=== PATIENT | male | born 1985 | race Caucasian/White ===

== ENCOUNTER 2021-11-24 08:37 | Emergency (ER) | payer SELFPAY ==
[~2021-11-24] VITALS: Ht 185.5 cm; Wt 117.9 kg
--- NOTE | 2021-11-24 08:57 | ED Back Pain ---
General Stated Complaint: BACK PAIN Source of Information: Patient Exam Limitations: No Limitations History of Present Illness Date Seen by Provider: Nov 24, 2021 Time Seen by Provider: 08:45 Initial Comments Patient to the ER by private conveyance with chief complaint that since Thursday he woke up with significant pain in his left lower back. Is not radiating. Is not having hematuria or dysuria. No history of kidney stones. No traumatic inciting event. 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 He has had chronic back issues. He does not have any history of imaging. No loss of control of bowel or bladder. No saddle anesthesia, falls from weakness or other trauma. No surgeries on his back. He has not taken anything for the pain yet. Allergies and Home Medications Allergies Coded Allergies: No Known Drug Allergies (Unverified , 11/24/21) Patient Home Medication List Home Medication List Reviewed: Yes Review of Systems Constitutional: No chills, No diaphoresis EENTM: No ear discharge, No ear pain Respiratory: No cough, No short of breath Cardiovascular: No edema, No Hx of Intervention, No palpitations Gastrointestinal: No abdominal pain, No nausea, No vomiting Genitourinary: No discharge, No dysuria Musculoskeletal: back pain; No joint pain All Other Systems Reviewed Negative Unless Noted: Yes Past Qroqixx-Ycqovz-Ohvnkk Hx Patient Social History Tobacco Use?: No Use of E-Cig and/or Vaping dev: No Substance use?: No Physical Exam Vital Signs Vital Signs - First Documented 11/24/21 08:41 Temp 35.1 Pulse 93 Resp 20 B/P (MAP) 178/128 (145) Pulse Ox 99 O2 Delivery Room Air Capillary Refill : Height, Weight, BMI Height: '" Weight: lbs. oz. kg; BMI Method: General Appearance: WD/WN, Mild Distress HEENT: PERRL/EOMI, Pharynx Normal, Moist Mucous Membranes Neck: Full Range of Motion, Normal Inspection Cardiovascular: Regular Rate, Rhythm, Normal Peripheral Pulses Respiratory: Lungs Clear, Normal Breath Sounds, No Accessory Muscle Use, No Respiratory Distress Back: Normal Inspection, No CVA Tenderness, No Vertebral Tenderness, Muscle Spasm (Left paravertebral spinous tenderness over the upper lumbar) Extremity: Normal Capillary Refill, No Pedal Edema Neurologic/Psychiatric: Alert, Oriented x3, No Motor/Sensory Deficits Skin: Normal Color, Warm/Dry Progress/Results/Core Measures Results/Orders Lab Results Laboratory Tests Test 11/24/21 09:00 Range/Units Urine Color YELLOW Urine Clarity CLEAR Urine pH 7.0 5-9 Urine Specific [place] 1.020 1.016-1.022 Urine Protein NEGATIVE NEGATIVE Urine Glucose (UA) NEGATIVE NEGATIVE Urine Ketones NEGATIVE NEGATIVE Urine Nitrite NEGATIVE NEGATIVE Urine Bilirubin NEGATIVE NEGATIVE Urine Urobilinogen 0.2 < = 1.0 MG/DL Urine Leukocyte Esterase NEGATIVE NEGATIVE Urine RBC (Auto) TRACE-I H NEGATIVE Urine RBC RARE /HPF Urine WBC NONE /HPF Urine Squamous Epithelial Cells NONE /HPF Urine Crystals NONE /LPF Urine Bacteria NEGATIVE /HPF Urine Casts NONE /LPF Urine Mucus NEGATIVE /LPF Urine Culture Indicated NO My Orders Orders - NATASHA CAMACHO Ua Culture If Indicated (11/24/21 08:49) Ketorolac Injection (Toradol Injection) (11/24/21 09:00) Medications Given in ED Current Medications Medications Dose Ordered Sig/Bc Route Start Time Stop Time Status Last Admin Dose Admin Ketorolac Tromethamine 60 mg ONCE ONCE IM 11/24/21 09:00 11/24/21 09:01 DC 11/24/21 09:15 60 MG Vital Signs/I&O 11/24/21 08:41 Temp 35.1 Pulse 93 Resp 20 B/P (MAP) 178/128 (145) Pulse Ox 99 O2 Delivery Room Air Progress Progress Note : Time: 08:55 Progress Note Toradol to start. Urinalysis to rule out infection or kidney stone. We will put him on naproxen, topical creams and referral to physical therapy for what is likely organic back pain with muscle spasms. Cyclobenzaprine. Departure Impression Primary Impression: Lumbago without sciatica Qualified Codes: M54.50 - Low back pain, unspecified Disposition: 01 HOME, SELF-CARE Condition: Stable Departure-Patient Inst. Decision time for Depature: 09:32 Referrals: NO,LOCAL PHYSICIAN (PCP/Family) Primary Care Physician Patient Instructions: Low Back Pain (DC) Add. Discharge Instructions: Make sure you are drinking plenty of fluids. Warm moist heat and topical creams such as icy hot or creams with capsaicin oil are often helpful. Tylenol 650 mg every 8 hours as necessary for pain. Start a regimen of naproxen daily to reduce the inflammation in your back. Naproxen 500 mg twice a day. If you have muscle spasms again in your back then you may take cyclobenzaprine/Flexeril 1 tablet every 8 hours as necessary. Flexeril will cause drowsiness. Stay active moving around the house and doing your stretching exercises. Do not lift, push or pull greater than 20 pounds until for 1 week. Obtain a back brace and wear it on the days that you need it. Follow the stretching exercises and consider engaging in a course of physical therapy. You may follow-up with [facility] physical therapy by calling for a no upfront cost evaluation at [phone]. You should also seek help through a primary care office and managing your symptoms. Promptly return to the ER if you experience numbness in your saddle region, inability to urinate, or falls caused by weakness or numbness in your legs. Scripts Naproxen (Naprosyn) 500 Mg Tablet 500 MG PO BID, #30 TAB 0 Refills Prov: NATASHA CAMACHO 11/24/21 Cyclobenzaprine HCl (Cyclobenzaprine HCl) 10 Mg Tablet 10 MG PO Q8H PRN for SPASMS, #20 TAB 0 Refills Prov: NATASHA CAMACHO 11/24/21 Work/School Note: Work Release Form Date Seen in the Emergency Department: Nov 24, 2021 Return to Work: Nov 25, 2021 Restrictions: Need Release from Doctor Other Restrictions Listed Below: Do not lift, push, pull above 20 pounds until 12/02/2021. NATASHA CAMACHO Nov 24, 2021 08:57
[2021-11-24] MEDS ORDERED: KETOROLAC 60 MG/2 ML VIAL IM ONE (09:00)
[2021-11-24 09:05] LABS: BILIRUBIN,URINE NEGATIVE (NEGATIVE); CLARITY,URINE CLEAR; COLOR,URINE YELLOW; GLUCOSE, URINE (UA) NEGATIVE (NEGATIVE); KETONES,URINE NEGATIVE (NEGATIVE); LEUKOCYTE ESTERASE ,URINE NEGATIVE (NEGATIVE); NITRITE,URINE NEGATIVE (NEGATIVE); PROTEIN,URINE NEGATIVE (NEGATIVE)
[2021-11-24 09:12] LABS: BACTERIA,URINE NEGATIVE /HPF; RBC,URINE RARE /HPF
[2021-11-24] MEDS ORDERED: CYCL10TA25 PO (09:33)
[2021-11-24] MEDS ORDERED: NAPR-1071 PO (09:33)
[2021-11-24 10:03] VITALS: BP 146/79
== END 2021-11-24 10:03 | disposition home or self-care (01) ==
LOC: EDUNIT# 08:37 → ER 08:40
DX: M54.50 Low back pain, unspecified (principal)
CPT/HCPCS: 81000; 99284

== ENCOUNTER 2022-01-16 20:10 | Emergency (ER) | payer SELFPAY ==
[~2022-01-16] VITALS: Ht 183 cm; Wt 122.4 kg
[~2022-01-16 20:10] MED LIST: CYCL10TA25 PO; NAPR-1071 PO
[2022-01-16 20:41] VITALS: BP 157/115
--- NOTE | 2022-01-16 20:49 | ED EENT ---
History of Present Illness General Chief Complaint: Oral/Throat Problems Stated Complaint: SORE THROAT/SWELLING Source: patient Exam Limitations: no limitations History of Present Illness Date Seen by Provider: January 16, 2022 Time Seen by Provider: 20:44 Initial Comments Patient is a 36-year-old male who presents ED with sore throat difficulty swallowing. Symptoms over the past 3 weeks. This progressively gotten worse. Noticed redness to the back of his throat with pus pocket. Reports mild cough but is an everyday smoker. Denies any worsening cough, chest pain, Edilberto pain vomiting or diarrhea fever. He states his kids at home were diagnosed with strep throat and treated. Patient had leftover amoxicillin and has taken a few days worth. He states his symptoms are worsening. Tolerating secretions but does hurt to swallow. Denies waking up in the middle of the night with worsening cough or severe throat pain. Denies history of GERD. Denies of any neck swelling, pain to the floor of his mouth, urinary symptoms. Patient denies history of HIV. Denies nausea, weakness, body aches, increased tiredness. Allergies and Home Medications Allergies Coded Allergies: No Known Drug Allergies (Unverified , 11/24/21) Patient Home Medication List Home Medication List Reviewed: Yes Azithromycin (Azithromycin) 500 Mg Tablet, 500 MG PO DAILY Prescribed by: HUE BACH on 01/16/222050 Cyclobenzaprine HCl (Cyclobenzaprine HCl) 10 Mg Tablet, 10 MG PO Q8H PRN for SPASMS Prescribed by: NATASHA CAMACHO on 11/24/21932 Naproxen (Naprosyn) 500 Mg Tablet, 500 MG PO BID Prescribed by: NATASHA CAMACHO on 11/24/21932 Review of Systems Review of Systems Constitutional: No chills, No diaphoresis, No malaise, No weakness Eyes: Denies Blurred Vision, Denies Decreased Acuity Ears: Denies Dizziness, Denies Pain Nose: denies clots, denies congestion Mouth: denies loose teeth Throat: pain, swelling, painful swallowing Physical Exam Vital Signs Vital Signs - First Documented 01/16/22 20:41 Temp 36.5 Pulse 94 Resp 20 B/P (MAP) 157/115 (129) Height, Weight, BMI Height: '" Weight: lbs. oz. kg; 34.00 BMI Method: General Appearance: WD/WN, no apparent distress Eyes: bilateral eye normal inspection, bilateral eye PERRL, bilateral eye EOMI Ears: bilateral ear auricle normal, bilateral ear canal normal, bilateral ear TM normal Nose: normal inspection Mouth/Throat: pharynx swelling, pharynx tenderness Neck: non-tender, full range of motion, supple, normal inspection Cardiovascular: regular rate, rhythm, no edema, no gallop, no JVD Respiratory: chest non-tender, lungs clear, normal breath sounds, no respiratory distress, no accessory muscle use Gastrointestinal: normal bowel sounds, non tender, soft, no organomegaly 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 This has been ongoing for the past 3 weeks. Took leftover amoxicillin at home without much improvement. He states kids at home were diagnosed with strep throat. Reports chronic cough every day smoker. Denies worsening cough. No ear pain vomiting, diarrhea, abdominal pain. Patient with erythematous throat with exudate and swollen tonsils. Concerning for strep. Patient will be discharged azithromycin. Discussed smoking cessation. Follow-up your PCP in 2 to 3 days for evaluation. Denies history of GERD or waking up with worsening throat pain. Denies worsening cough at night. Discussed following up with PCP in 2 to 3 days for reevaluation. Gargling salt water, Tylenol ibuprofen for pain. Patient has no body aches, fatigue, joint pain, abdominal pain suggesting other potential etiologies. He denies of any urinary symptoms or concern for HIV. Impression Primary Impression: Pharyngitis Disposition: HOME, SELF-CARE Condition: Stable Departure-Patient Inst. Decision time for Depature: 20:51 Referrals: NO,LOCAL PHYSICIAN (PCP/Family) Primary Care Physician Patient Instructions: Sore Throat in Adults Scripts Azithromycin (Azithromycin) 500 Mg Tablet 500 MG PO DAILY for 5 Days, #5 TAB Prov: IBRAHIMA BUCKNER 01/16/22 Work/School Note: Work Release Form Date Seen in the Emergency Department: January 16, 2022 Return to Work: January 19, 2022 IBRAHIMA BUCKNER January 16, 2022 20:49
[2022-01-16] MEDS ORDERED: AZIT500T9 PO (20:51)
== END 2022-01-16 21:27 | disposition home or self-care (01) ==
LOC: EDUNIT# 20:10 → ER 20:11
DX: J02.9 Acute pharyngitis, unspecified (principal); F17.200 Nicotine dependence, unspecified, uncomplicated
CPT/HCPCS: 87430; 99283

== ENCOUNTER 2023-05-09 22:47 | Emergency (ER) | payer SELFPAY ==
[~2023-05-09] VITALS: Ht 182.9 cm; Wt 113.9 kg
[~2023-05-09 22:47] MED LIST changes: +AZIT500T9 PO
--- NOTE | 2023-05-09 23:09 | ED Back Pain ---
General Chief Complaint: Back Problems Stated Complaint: LOWER BACK PAIN Nursing Triage Note: Patient c/o bilat. side back pain x 4 days with no known injury. Patient states he drinks a lot of pop and states he does not drink any water. Patient denies any numbness or tingling to bilat. LE. Patient denies taking any medications at home for his pain. Patient states movement makes his pain worse. 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 PAIN BEGAN BEFORE HE STARTED NEW JOB NO CHRONIC MEDICAL PROBLEMS OR DAILY MEDICATIONS NO PRIOR SURGERIES PT SMOKES 1 PPD, HX OF ETOH ABUSE--CLAIMS NONE SINCE 2007, DRUGS--THC Other Comments PCP: NONE Allergies and Home Medications Allergies Coded Allergies: No Known Drug Allergies (Unverified , 11/24/21) Patient Home Medication List Home Medication List Reviewed: Yes Azithromycin (Azithromycin) 500 Mg Tablet, 500 MG PO DAILY Prescribed by: HUE BACH on 01/16/222050 Cyclobenzaprine HCl (Cyclobenzaprine HCl) 10 Mg Tablet, 10 MG PO Q8H PRN for SPASMS Prescribed by: NATASHA CAMACHO on 11/24/21932 Cyclobenzaprine HCl (Cyclobenzaprine HCl) 10 Mg Tablet, 10 MG PO Q8H PRN for SPASMS Prescribed by: GRISEL MAYEN on 05/10/23114 Naproxen (Naprosyn) 500 Mg Tablet, 500 MG PO BID Prescribed by: NATASHA CAMACHO on 11/24/21932 Naproxen (Naproxen) 500 Mg Tablet.dr, 500 MG PO BID Prescribed by: GRISEL MAYEN on 05/10/23 011 Review of Systems Constitutional: no symptoms reported Respiratory: no symptoms reported Cardiovascular: no symptoms reported Gastrointestinal: see HPI Genitourinary: no symptoms reported Musculoskeletal: see HPI Skin: no symptoms reported Psychiatric/Neurological: No Symptoms Reported Past Qmmlrdh-Tlmuxy-Ptksol Hx Patient Social History Tobacco Use?: Yes Tobacco type used: Cigarettes Smoking Status: Current Everyday Smoker Substance use?: Yes Substance type: Marijuana Substance frequency: Daily Alcohol Use?: Yes Past Medical History Surgeries: No Respiratory: No Cardiac: No Neurological: No Genitourinary: No Gastrointestinal: No Musculoskeletal: No Endocrine: No HEENT: No Cancer: No Psychosocial: No Integumentary: No Blood Disorders: No Family Medical History SOCIAL HISTORY: -SMOKES 1 PPD -ETOH--HX OF ABUSE--USED TO DRINK THREE FIFTH'S OF TRISTAN [employer] A DAY, QUIT 2007 -DRUGS--THC DAILY Physical Exam Vital Signs Vital Signs - First Documented 05/09/23 22:52 Temp 35.9 Pulse 77 Resp 14 B/P (MAP) 164/114 (131) O2 Delivery Room Air Capillary Refill : Height, Weight, BMI Height: '" Weight: lbs. oz. kg; 34.00 BMI Method: General Appearance: No Apparent Distress, WD/WN, Other (WALKS UPRIGHT WITHOUT DIFFICULTY. PT IS FILTHY, MALODOROUS, REEKS OF MARIJUANA AND TOBACCO, EXTREMELY DRAMATIC WITH MARKED EXAGGERATED PAIN RESPONSE. ) Neck: Full Range of Motion, Normal Inspection, Non Tender, Supple Cardiovascular: Regular Rate, Rhythm Respiratory: Normal Breath Sounds Gastrointestinal: Non Tender, Soft Back: No CVA Tenderness, No Vertebral Tenderness, Other (BILATERAL FLANK TENDERNESS. ) Extremity: Normal Capillary Refill, No Pedal Edema, Other (DTR'S INTACT. 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 Skin: Normal Color, Warm/Dry, Tattoos/Piercings (EXTENSIVE TATTOOS), Other (SORES/SCARS/SCABS TO ARMS AND UPPER BACK) Progress/Results/Core Measures Results/Orders Lab Results Laboratory Tests Test 05/09/23 22:55 Range/Units Urine Color YELLOW Urine Clarity CLEAR Urine pH 5.5 5-9 Urine Specific [place] 1.025 H 1.016-1.022 Urine Protein NEGATIVE NEGATIVE Urine Glucose (UA) NEGATIVE NEGATIVE Urine Ketones NEGATIVE NEGATIVE Urine Nitrite NEGATIVE NEGATIVE Urine Bilirubin NEGATIVE NEGATIVE Urine Urobilinogen 0.2 < = 1.0 MG/DL Urine Leukocyte Esterase NEGATIVE NEGATIVE Urine RBC (Auto) TRACE H NEGATIVE Urine RBC 0-2 /HPF Urine WBC 0-2 /HPF Urine Crystals NONE /LPF Urine Bacteria TRACE /HPF Urine Casts NONE /LPF Urine Mucus LARGE H /LPF Urine Other MOD SPERM H /HPF Urine Culture Indicated NO Urine Opiates Screen NEGATIVE NEGATIVE Urine Oxycodone Screen NEGATIVE NEGATIVE Urine Methadone Screen NEGATIVE NEGATIVE Urine Propoxyphene Screen NEGATIVE NEGATIVE Urine Barbiturates Screen NEGATIVE NEGATIVE Ur Tricyclic Antidepressants Screen NEGATIVE NEGATIVE Urine Phencyclidine Screen NEGATIVE NEGATIVE Urine Amphetamines Screen NEGATIVE NEGATIVE Urine Methamphetamines Screen NEGATIVE NEGATIVE Urine Benzodiazepines Screen NEGATIVE NEGATIVE Urine Cocaine Screen NEGATIVE NEGATIVE Urine Cannabinoids Screen POSITIVE H NEGATIVE My Orders Orders - GRISEL MAYEN DO Drug Screen Stat (Urine) (05/09/23 22:55) Ua Culture If Indicated (05/09/23 22:55) Ct Abd/Pelvis Wo(Kidney Stone) (05/09/23 23:21) Ketorolac Injection (Ketorolac Injection (05/09/23 23:30) Medications Given in ED Current Medications Medications Dose Ordered Sig/Bc Route Start Time Stop Time Status Last Admin Dose Admin Ketorolac Tromethamine 60 mg ONCE ONCE IM 05/09/23 23:30 05/09/23 23:31 DC 05/09/23 23:42 60 MG Vital Signs/I&O 05/09/23 22:52 Temp 35.9 Pulse 77 Resp 14 B/P (MAP) 164/114 (131) O2 Delivery Room Air Blood Pressure Mean: 131 Progress Progress Note : Progress Note UNEVENTFUL ER STAY SLEPT FOR REMAINDER OF ER STAY--LAYING PRONE/ON STOMACH PT WALKS UPRIGHT AND MOVES QUICKLY WITHOUT DIFFICULTY THROUGHOUT ER STAY VITALS STABLE UA WITH TRACE OF RBC'S UDS + FOR THC CT ABDOMEN/PELVIS DOES NOT SHOW ANY ACUTE PROCESS GIVEN TORADOL IM DISCUSSED TEST RESULTS, ANTICIPATED COURSE, MEDICATIONS, NEED FOR FOLLOW UP AND RETURN PRECAUTIONS REVIEWED PRIOR RECORDS--ER VISITS Diagnostic Imaging Comments CT ABDOMEN/PELVIS--PER [facility] VIA FAX AT 0113 -MILD WALL THICKENING OF BLADDER -DIVERTICULOSIS WITHOUT ACUTE DIVERTICULITIS -NO KIDNEY OR URETER ABNORMALITIES, NO STONES Reviewed: Reviewed by Me Departure Impression Primary Impression: Back pain Disposition: HOME, SELF-CARE Condition: Stable Departure-Patient Inst. Decision time for Depature: 01:14 Referrals: NO,LOCAL PHYSICIAN (PCP/Family) Primary Care Physician Patient Instructions: Low Back Pain (DC) Add. Discharge Instructions: MOIST HEAT TO SORE AREAS AT 20 MINUTE INTERVALS FOLLOW UP WITH [facility] NEXT WEEK IF NO BETTER All discharge instructions reviewed with patient and/or family. Voiced understanding. Scripts Cyclobenzaprine HCl (Cyclobenzaprine HCl) 10 Mg Tablet 10 MG PO Q8H PRN for SPASMS, #15 TAB 0 Refills Prov: GRISEL MAYEN DO 05/10/23 Naproxen (Naproxen) 500 Mg Tablet.dr 500 MG PO BID, #20 TAB Prov: GRISEL MAYEN DO 05/10/23 GRISEL MAYEN DO May 09, 2023 23:08
[2023-05-09 23:19] LABS: CLARITY,URINE CLEAR; COLOR,URINE YELLOW; GLUCOSE, URINE (UA) NEGATIVE (NEGATIVE); KETONES,URINE NEGATIVE (NEGATIVE); PH,URINE 5.5 (5-9); PROTEIN,URINE NEGATIVE (NEGATIVE)
[2023-05-09 23:20] LABS: AMPHETAMINE SCREEN, URINE NEGATIVE (NEGATIVE); BACTERIA,URINE TRACE /HPF; BARBITURATE SCREEN URINE NEGATIVE (NEGATIVE); BENZODIAZEPINES SCREEN URINE NEGATIVE (NEGATIVE); BILIRUBIN,URINE NEGATIVE (NEGATIVE); CANNABINOID SCREEN, URINE POSITIVE (NEGATIVE); COCAINE SCREEN URINE NEGATIVE (NEGATIVE); LEUKOCYTE ESTERASE ,URINE NEGATIVE (NEGATIVE); METHADONE STAT NEGATIVE (NEGATIVE); NITRITE,URINE NEGATIVE (NEGATIVE); OPIATE SCREEN URINE NEGATIVE (NEGATIVE); OXYCODONE STAT NEGATIVE (NEGATIVE); PROPOXYPHENE STAT NEGATIVE (NEGATIVE); RBC,URINE 0-2 /HPF; TRICYCLIC ANTIDEPRESSANTS SCRE NEGATIVE (NEGATIVE); URINE OTHER MOD SPERM /HPF; WBC,URINE 0-2 /HPF
[2023-05-09] MEDS ORDERED: KETOROLAC INJ 60 MG/2 ML VIAL IM ONE (23:30)
[2023-05-10] MEDS ORDERED: NAPR500T8 PO (01:15)
[2023-05-10] MEDS ORDERED: CYCL10TA25 PO (01:15)
[2023-05-10 01:16] VITALS: BP 146/85
--- NOTE | 2023-05-10 07:50 | Diagnostic Imaging Report ---
PROCEDURE: CT urinary tract, rule out kidney stone. TECHNIQUE: Multiple contiguous axial images were obtained through the abdomen and pelvis without the use of intravenous contrast. Auto Exposure Controls were utilized during the CT exam to meet ALARA standards for radiation dose reduction. INDICATION: Bilateral flank pain. No prior studies are available for comparison. Lung bases are clear. Liver and gallbladder are unremarkable. There is no biliary duct dilatation. Pancreas and spleen are unremarkable. No adrenal mass is detected. No renal calculi or hydronephrosis is detected. Aorta is nonaneurysmal. Bowel loops are normal caliber. There do appear to be some diverticula of the sigmoid colon but no evidence of acute diverticulitis. No free fluid or fluid collection is identified. Bladder shows some mild wall thickening however this could be owing to incomplete distention. IMPRESSION: Essentially unremarkable noncontrast CT of the abdomen and pelvis. There is some questionable mild bladder wall thickening. While this could be owing to incomplete distention, cystitis cannot be entirely excluded. Study is otherwise unremarkable. Dictated by: Dictated on workstation # [id number]
== END 2023-05-10 01:18 | disposition home or self-care (01) ==
LOC: EDUNIT# 22:47 → ER 22:51
DX: M54.50 Low back pain, unspecified (principal); F17.210 Nicotine dependence, cigarettes, uncomplicated; Z28.310 Unvaccinated for COVID-19
CPT/HCPCS: 74176; 80306; 81000

== ENCOUNTER 2023-07-18 18:25 | Emergency (ER) | payer OTHER ==
[~2023-07-18] VITALS: Ht 182 cm; Wt 113.0 kg
[~2023-07-18 18:25] MED LIST changes: +NAPR500T8 PO
[2023-07-18] MEDS ORDERED: RX-AMOX/CLAV. (AUGMENTIN) 500MG TAB PPK#2 PO STA (18:57)
[2023-07-18] MEDS ORDERED: RX-NAPROXEN (NAPROSYN) 250 MG TAB PPK#4 PO STA (18:57)
[2023-07-18] MEDS ORDERED: LIDOCAINE 2% VISCOUS 15 ML UDC MM ONE (19:00)
[2023-07-18] MEDS ORDERED: NAPR500T8 PO (19:02)
[2023-07-18] MEDS ORDERED: TRAM50TA3 PO (19:02)
[2023-07-18] MEDS ORDERED: LIDO15SO3 MM (19:02)
[2023-07-18] MEDS ORDERED: AMOX1TAB12 PO (19:02)
--- NOTE | 2023-07-18 19:02 | ED EENT ---
History of Present Illness General Chief Complaint: Dental Problems/Pain Stated Complaint: TOOTH PAIN Nursing Triage Note: PT TO ED W/ C/O DENTAL PAIN, CHRONIC, REPORTS "USUALLY STARTS TO HURT WHEN THE WEATHER CHANGES". STATES "IT'S WORSE" AT THIS TIME. Source: patient History of Present Illness Date Seen by Provider: Jul 18, 2023 Time Seen by Provider: 18:49 Initial Comments PT ARRIVES VIA POV FROM HOME C/O DENTAL PAIN SINCE THIS AM--RIGHT LOWER MOLAR AREA NO FACIAL SWELLING NO FEVER HE TOOK 2 TYLENOL EARLIER TODAY, NO RELIEF HAS NOT TAKEN OR DONE ANYTHING ELSE FOR PAIN HE HAS HAD CHRONIC DENTAL PROBLEMS WITH MULTIPLE TEETH, AND HAS HAD PROBLEMS WITH THIS TOOTH FOR "OVER A DECADE" -STATES IT "BROKE OFF" OVER 10 YEARS AGO. HE STATES MANY YEARS AGO, HE WENT TO THE DENTIST AND WAS TOLD HIS BLOOD PRESSURE WAS TOO HIGH FOR THEM TO DO ANYTHING ABOUT IT HE STATES HIS BLOOD PRESSURE IS ALWAYS EXTREMELY HIGH, AND HE HAS BEEN TOLD HE NEEDS TO BE ON BLOOD PRESSURE MEDICATIONS FOR MANY YEARS, BUT HE REFUSES TO TAKE ANY MEDICATIONS. HE HAS NOT BEEN TO DENTIST IN MANY YEARS PCP: [facility]--"NEVER GOES THERE" Allergies and Home Medications Allergies Coded Allergies: No Known Drug Allergies (Unverified , 11/24/21) Patient Home Medication List Home Medication List Reviewed: Yes Amoxicillin/Potassium Clav (Amox Tr-K Clv 875-125 mg Tab) 875 Mg-125 Mg Tablet, 1 EACH PO BID Prescribed by: GRISEL MAYEN on 07/18/231901 Azithromycin (Azithromycin) 500 Mg Tablet, 500 MG PO DAILY Prescribed by: HUE BACH on 01/16/222050 Cyclobenzaprine HCl (Cyclobenzaprine HCl) 10 Mg Tablet, 10 MG PO Q8H PRN for SPASMS Prescribed by: NATASHA CAMACHO on 11/24/21 0933 Cyclobenzaprine HCl (Cyclobenzaprine HCl) 10 Mg Tablet, 10 MG PO Q8H PRN for SPASMS Prescribed by: GRISEL MAYEN on 05/10/23 011 Lidocaine HCl (Lidocaine HCl Viscous) 2 % Solution, 1-2 ML MM [id number] Prescribed by: GRISEL MAYEN on 07/18/231901 Naproxen (Naprosyn) 500 Mg Tablet, 500 MG PO BID Prescribed by: NATASHA CAMACHO on 11/24/21 0933 Naproxen (Naproxen) 500 Mg Tablet.dr, 500 MG PO BID Prescribed by: GRISEL MAYEN on 05/10/23 0115 Naproxen (Naproxen) 500 Mg Tablet.dr, 500 MG PO BID Prescribed by: GRISEL MAYEN on 07/18/23 190 Tramadol HCl (Tramadol HCl) 50 Mg Tablet, 50 MG PO Q4H Prescribed by: GRISEL MAYEN on 07/18/231901 Review of Systems Review of Systems Constitutional: no symptoms reported Mouth: see HPI Respiratory: no symptoms reported Cardiovascular: no symptoms reported Gastrointestinal: no symptoms reported Musculoskeletal: no symptoms reported Skin: no symptoms reported Neurological: No Symptoms Reported Past Wzyamco-Yqscjs-Bbigks Hx Patient Social History Tobacco Use?: Yes Tobacco type used: Cigarettes Smoking Status: Current Everyday Smoker Use of E-Cig and/or Vaping dev: No Substance use?: Yes Substance type: Marijuana Alcohol Use?: No Pt feels they are or have been: No Past Medical History Surgery/Hospitalization HX: REPORTS "4 1/2 [facility]" CARDIAC HX-NM X3 2017 Surgeries: No Respiratory: No Cardiac: Yes (REFUSES TO TAKE MEDICATIONS) Hypertension Neurological: No Genitourinary: No Gastrointestinal: No Musculoskeletal: No Endocrine: No HEENT: Yes (POOR DENTITION) Cancer: No Psychosocial: No Integumentary: No Blood Disorders: No Family Medical History SOCIAL HISTORY: -SMOKES 1 PPD -ETOH--HX OF ABUSE--USED TO DRINK THREE FIFTH'S OF [employer] A DAY, QUIT 2007 -DRUGS--THC DAILY Physical Exam Vital Signs Vital Signs - First Documented 07/18/23 18:32 Temp 36.8 Pulse 73 Resp 20 B/P (MAP) 213/120 (151) Pulse Ox 99 O2 Delivery Room Air Height, Weight, BMI Height: '" Weight: lbs. oz. kg; 34.00 BMI Method: General Appearance: WD/WN, no apparent distress Ears: bilateral ear TM normal Nose: normal inspection Mouth/Throat: other (EXTENSIVE DENTAL DECAY, BUT RIGHT LOWER MOLAR AREA WITH VERY EXTENSIVE DECAY TO SECOND MOLAR--DOWN TO GUM LINE. 1ST AND 3RD MOLARS WITH EXTENSIVE DECAY WELL. THERE IS DIFFUSE ADJACENT GUM SWELLING AND ERYTHEMA, NO FLUCTUANCE. 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, no motor/sensory deficits, alert, oriented x 3 Skin: normal color, warm/dry, tattoos/piercings Progress/Results/Core Measures Results/Orders My Orders Orders - GRISEL MAYEN DO Rx-Amoxicillin/Clav Tab (Rx-Augmentin Ta (07/18/23 18:57) Rx-Naproxen (Rx-Naprosyn) (07/18/23 18:57) Rx-Tramadol Hcl (Rx-Ultram) (07/18/23 18:57) Lidocaine 2% Viscous 15 Ml (Xylocaine Vi (07/18/23 19:00) Medications Given in ED Current Medications Medications Dose Ordered Sig/Bc Route Start Time Stop Time Status Last Admin Dose Admin Lidocaine HCl 5 ml ONCE ONCE MM 07/18/23 19:00 07/18/23 19:01 DC 07/18/23 19:15 5 ML Vital Signs/I&O 07/18/23 07/18/23 18:32 19:15 Temp 36.8 Pulse 73 Resp 20 B/P (MAP) 213/120 (151) 199/148 Pulse Ox 99 O2 Delivery Room Air Blood Pressure Mean: 151 Progress Progress Note : Progress Note VITALS STABLE, AFEBRILE DISCUSSED ANTICIPATED COURSE, SYMPTOMATIC TREATMENT, MEDICATIONS, NEED FOR FOLLOW UP WITH PCP FOR BLOOD PRESSURE CONTROL,AND WITH DENTIST WELL. PT IS NOT INTERESTED IN BLOOD PRESSURE TREATMENT AT THIS TIME. Departure Impression Primary Impression: Dental caries Additional Impressions: HTN (hypertension) Non-compliance Disposition: HOME, SELF-CARE Condition: Stable Departure-Patient Inst. Decision time for Depature: 18:59 Referrals: NAZAINN PIZARRO DO [facility] Patient Instructions: DASH Diet, Tooth Decay ED Add. Discharge Instructions: FOLLOW UP WITH [facility] THIS WEEK FOR FURTHER CARE OF YOUR BLOOD PRESSURE FOLLOW UP WITH [facility] FOR FURTHER CARE OF YOUR DENTAL PROBLEM SOFT FOODS All discharge instructions reviewed with patient and/or family. Voiced understanding. Scripts Tramadol HCl (Tramadol HCl) 50 Mg Tablet 50 MG PO Q4H for Pain, #10 TAB Prov: GRISEL MAYEN DO 07/18/23 Naproxen (Naproxen) 500 Mg Tablet.dr 500 MG PO BID, #20 TAB Prov: GRISEL MAYEN DO 07/18/23 Lidocaine HCl (Lidocaine HCl Viscous) 2 % Solution 1-2 ML MM [id number], #120 ML Prov: GRISEL MAYEN DO 07/18/23 Amoxicillin/Potassium Clav (Amox Tr-K Clv 875-125 mg Tab) 875 Mg-125 Mg Tablet 1 EACH PO BID for 15 Days, #30 TAB Prov: GRISEL MAYEN DO 07/18/23 GRISEL MAYEN DO Jul 18, 2023 19:02
[2023-07-18 19:15] VITALS: BP 199/148
== END 2023-07-18 19:15 | disposition home or self-care (01) ==
LOC: EDUNIT# 18:25 → ER 18:27
DX: K02.9 Dental caries, unspecified (principal); I10 Essential (primary) hypertension; I25.2 Old myocardial infarction; F17.210 Nicotine dependence, cigarettes, uncomplicated; Z91.148 Patient's other noncompliance with medication regimen for other reason
CPT/HCPCS: 99283